=== PATIENT | female | born 1945 | race Caucasian/White ===

== ENCOUNTER 2018-09-22 17:27 | Outpatient (CLI) | payer OTHER | END 2018-09-22 17:30 | LOC: LAB 17:27 | PROVIDERS: ATTEND Family Medicine | DX: R30.0 Dysuria (principal) | CPT/HCPCS: 87086 ==

== ENCOUNTER 2018-09-29 17:56 | Outpatient (CLI) | payer OTHER ==
[2018-09-29 18:50] LABS: APPEARANCE,URINE CLEAR (CLEAR); COLOR,URINE YELLOW (YELLOW); OCCULT BLOOD,URINE TRACE-INTACT (NEGATIVE); UROBILINOGEN URINE 0.2 Eu (0.2-1.0)
[2018-09-29 19:07] LABS: eGFR (Non-African) > 60
[2018-09-29 19:09] LABS: MEAN CORPUSCULAR HEMOGLOBIN 32.8 pg (28.0-34.0)
== END 2018-09-29 17:58 ==
LOC: LAB 17:56
PROVIDERS: ATTEND Nurse Practitioner Family
DX: N39.0 Urinary tract infection, site not specified (principal)
CPT/HCPCS: 36415; 80053; 81002; 85025

== ENCOUNTER 2019-04-13 09:55 | Outpatient (CLI) | payer OTHER | END 2019-04-13 10:00 | LOC: LAB 09:55 | PROVIDERS: ATTEND Family Medicine | DX: E03.9 Hypothyroidism, unspecified (principal) | CPT/HCPCS: 36415; 84443 ==

== ENCOUNTER 2019-04-20 14:50 | Outpatient (CLI) | payer OTHER | END 2019-04-20 14:55 | LOC: LABRHC 14:50 | PROVIDERS: ATTEND Family Medicine | DX: L98.9 Disorder of the skin and subcutaneous tissue, unspecified (principal) ==